=== PATIENT | female | born 1980 | race Hispanic/Latino ===

== ENCOUNTER 2018-05-01 20:38 | Emergency (ER) | payer SELFPAY ==
[2018-05-01 21:01] LABS: Bilirubin Negative (Negative); Blood, Urine Negative (Negative); Clarity CLEAR (Clear); Glucose, Urine (Dipstick) Negative (Negative); Leukocyte Trace (Negative); Nitrite Negative (Negative); Pregnancy Test - Urine (BHCG) Negative (Negative); Pregu Control Background? CLEAR/WHITE (CLR/WHITE); Pregu Control Bar Appear? YES (CONTROL BAR); Protein, Urine (Dipstick) Negative (Neg-Trace); Specific Gravity, Urine 1.018 (1.002-1.036)
[2018-05-01 21:03] LABS: Specific Gravity 1.018 (1.002-1.036)
[2018-05-01 21:04] LABS: Bacteria/HPF None Seen HPF (None Seen); Hyaline Casts/LPF 0-3 HYALINE CAST LPF (0-3 Hyaline); Pathc Cast-AUWi Flag 0.72 (0-2.49); RBC/HPF 0-3 HPF (0-3); Squamous Epithelial 0-3 HPF (0-3); WBC/HPF None Seen HPF (0-3)
[2018-05-01] MEDS ORDERED: Metoclopramide HCl 10 MG/2 ML VIAL ONE (21:04)
[2018-05-01] MEDS ORDERED: diphenhydrAMINE 50 MG/ML VIAL ONE (21:04)
== END 2018-05-01 22:24 | disposition home or self-care (01) ==
LOC: ERS 20:38
DX: R51 Headache (principal)
CPT/HCPCS: 81003; 81015; 81025; 87086; 96365; 96375; J1200; J2765

== ENCOUNTER 2021-05-12 12:13 | Emergency (ER) | payer OTHER, MEDICAID ==
[2021-05-12] MEDS ORDERED: Boostrix 0.5 ML (Tdap) VIAL ONE (13:20)
[2021-05-12] MEDS ORDERED: Acetaminophen 500 MG TAB ONE (13:20)
== END 2021-05-12 13:50 | disposition home or self-care (01) ==
LOC: EEVIPCON 12:13 → ERS 12:13
DX: S06.0X0A Concussion without loss of consciousness, initial encounter (principal); S01.81XA Laceration without foreign body of other part of head, initial encounter; Z23 Encounter for immunization; Y04.8XXA Assault by other bodily force, initial encounter
CPT/HCPCS: 12011; 70450; 72125; 90471; 90715